=== PATIENT | male | born 1990 | race Caucasian/White ===

== ENCOUNTER 2017-06-16 15:21 | Emergency (ER) | payer MEDICAID ==
[2017-06-16] MEDS: DEXAMETHASONE 10 MG/ML 1 ML INJ IV (16:10)
[2017-06-16] MEDS: morphine 2 MG INJ IV (16:11)
[2017-06-16] MEDS: NEOMYC/POLYMYX/DEXAMETH OPH 5 ML RIGHT EYE (16:14)
== END 2017-06-16 18:26 | disposition home or self-care (01) ==
LOC: FTE 15:21
DX: H10.11 Acute atopic conjunctivitis, right eye (principal); H11.421 Conjunctival edema, right eye
CPT/HCPCS: 96374; 96375; 99284-25

== ENCOUNTER 2017-06-18 18:16 | Emergency (ER) | payer MEDICAID ==
[2017-06-18] MEDS: ONDANSETRON (ODT) 4 MG TAB ODT (19:53)
[2017-06-18] MEDS: morphine 4 MG/ML VIAL IM (19:54)
[2017-06-18] MEDS: IOHEXOL 300MG/ML 150 ML BTL (22:07)
[2017-06-18] MEDS: SOD CHLORIDE 0.9% 100 ML (22:07)
[2017-06-18 23:14] LABS: ADD MAN DIFF? NO
[2017-06-18] MEDS: SOD CHLORIDE 0.9% 1,000 ML IV (23:14)
[2017-06-18 23:16] LABS: WHITE BLOOD COUNT 18.8 10^3/ul (4.8-10.8)
[2017-06-18 23:16] LABS: BASOPHIL # 0.1 10^3/ul (0.0-0.1); BASOPHILS % 0.4 % (0.0-2.0); EOSINOPHILS % 0.2 % (0.0-7.0); HEMATOCRIT 44.3 % (42.0-52.0); HEMOGLOBIN 14.1 g/dl (14.0-18.0); LYMPHOCYTES # 1.5 10^3/ul (0.8-2.9); LYMPHOCYTES % 7.9 % (15.0-51.0); MEAN CORPUSCULAR HEMOGLOBIN 28.8 pg (29.0-33.0); MEAN CORPUSCULAR HGB CONC 31.8 g/dl (32.0-37.0); MEAN CORPUSCULAR VOLUME 90.4 fl (82.0-101.0); MEAN PLATELET VOLUME 11.1 fl (7.4-10.4); MONOCYTE # 1.2 10^3/ul (0.3-0.9); MONOCYTES % 6.5 % (0.0-11.0); NEUTROPHIL # 15.9 10^3/ul (1.6-7.5); NEUTROPHILS % 84.5 % (39.0-77.0); PLATELET COUNT 332 10^3/UL (140-415); RED CELL DISTRIBUTION WIDTH 12.3 % (11.5-14.5)
[2017-06-18] MEDS: PIPER-TAZO 3.375 GM IV (PMX) 100 ML IVPB (23:16)
[2017-06-18 23:37] LABS: INR 0.88; PARTIAL THROMBOPLASTIN TIME 26.9 Sec (25.0-35.0); PT RATIO 0.9
[2017-06-18 23:47] LABS: ALANINE AMINOTRANSFERASE 26 IU/L (13-69); ALBUMIN 4.8 g/dl (3.3-4.9); ALBUMIN/GLOBULIN RATIO 1.37; ALKALINE PHOSPHATASE 90 IU/L (42-121); ANION GAP 17 (8-16); ASPARTATE AMINO TRANSFERASE 25 IU/L (15-46); BILIRUBIN,INDIRECT 0.1 mg/dl (0-1.1); BILIRUBIN,TOTAL 0.1 mg/dl (0.2-1.3); BLOOD UREA NITROGEN 10 mg/dl (7-20); CALCIUM 9.7 mg/dl (8.4-10.2); CARBON DIOXIDE 30 mmol/L (21-31); CHLORIDE 97 mmol/L (97-110); CREATININE 0.75 mg/dl (0.61-1.24); GLUCOSE 105 mg/dl (70-220); POTASSIUM 4.1 mmol/L (3.5-5.1); SODIUM 140 mmol/L (135-144); TOTAL PROTEIN 8.3 g/dl (6.1-8.1)
[2017-06-18] MEDS: VANCOMYCIN 1 GM (PMX) 250 ML IVPB (23:50)
== END 2017-06-19 01:54 | disposition left against medical advice (07) ==
LOC: FTE 06-19 01:54
DX: S05.91XA Unspecified injury of right eye and orbit, initial encounter (principal); H05.011 Cellulitis of right orbit; X58.XXXA Exposure to other specified factors, initial encounter; Y92.9 Unspecified place or not applicable
CPT/HCPCS: 36415; 70480; 80053; 85025; 85610; 85730; 87040; 96372; 96374; 96375; 99285-25